=== PATIENT | female | born 2000 | race Caucasian/White ===

== ENCOUNTER → 2023-01-16 | Outpatient (CLI) | payer BC, SELFPAY ==
[2023-01-19 09:07] LABS: Chlamydia By Nucleic Acid AMP Negative (Negative)
[2023-01-19 15:37] LABS: Gonococcus By Nucleic Acid AMP Negative (Negative)
== END | disposition home or self-care (01) ==
PROVIDERS: Referring Provider Nurse Practitioner; Visit Provider Nurse Practitioner
DX: N89.8 Other specified noninflammatory disorders of vagina (principal); A64 Unspecified sexually transmitted disease
CPT/HCPCS: 87491; 87591